=== PATIENT | female | born 1965 | race Caucasian/White ===

== ENCOUNTER 2022-02-06 21:50 | Emergency (ER) | payer MEDICAID ==
[~2022-02-06] VITALS: Ht 167.6 cm; Wt 79.5 kg
[2022-02-06 21:58] VITALS: BP 150/89
== END 2022-02-07 | disposition home or self-care (01) ==
LOC: ER 21:51
DX: S60.221A Contusion of right hand, initial encounter (principal); W22.8XXA Striking against or struck by other objects, initial encounter; Y93.89 Activity, other specified; Y92.89 Other specified places as the place of occurrence of the external cause; Y99.8 Other external cause status
CPT/HCPCS: 73130; 99283